=== PATIENT | male | born 1965 | race Caucasian/White ===

== ENCOUNTER 2021-08-06 07:54 | Day surgery (SDC) | payer OTHER, SELFPAY ==
[2021-07-31 15:24] VITALS: BMI 27.2
--- NOTE | 2021-08-06 08:06 | HO.ANESPROP2 ---
[facility] Past Medical History Medical History (Updated 07/31/21 @ 15:27 by Tammy Woodrfuf RN) CAD (coronary artery disease) COVID-19 vaccine series completed Elevated cholesterol HTN (hypertension) Myocardial infarction Family History Family history of problems with anesthesia: No Surgical History Surgical History (Updated 07/31/21 @ 15:24 by Tammy Woodruff RN) H/O colonoscopy Hx of heart artery stent Hx of sinus surgery History of Problems with Anesthesia: No Social History Social History Are you a primary hearing care professional to a significant other at home: No Do you presently have visiting nurse or other home services: No Patient Tobacco Use Status: Never used Tobacco Use of substances other than those prescribed or required for medical reasons: No Have you been hit, kicked, punched, or otherwise hurt by someone within the past year? If so, by whom?: No Are you DNR?: No Advance Directives Information Provided: Yes Advance Directives on File: No Recently lost weight without trying: No Eating poorly because of decreased appetite: No Nutrition Risks: No Nutritional Risk Poor oral hygiene: No (has crowns from old hockey injury) Meds Allergies Allergy/AdvReac Type Severity Reaction Status Date / Time No Known Allergies Allergy Verified 07/31/21 15:04 Active Medications: Current Medications Lactated Ringer's (Lr) 1,000 mls @ 50 mls/hr IVCONT .Q20H [facility] Home Medications Medication Instructions Recorded Confirmed Last Taken Type aspirin 81 mg tablet,delayed 81 mg PO DAILY 07/31/21 07/31/21 07/30/21 History release atorvastatin 80 mg tablet 80 mg PO BEDTIME 07/31/21 07/31/21 Unknown History lisinopril 5 mg tablet 5 mg PO DAILY 07/31/21 07/31/21 Unknown History metoprolol succinate 50 mg 50 mg PO DAILY 07/31/21 07/31/21 Unknown History tablet,extended release 24 hr Exam Exam Date and Time: August 06, 2021 0806 Height,Weight and Vital Signs: Height 6 ft Weight 91.172 kg Airway Mallampati Class: II (Caps 3 top front) TM Dist: >3cm Neck ROM: Full Heart: rrr Lungs: cta Assessment and Plan Assessment Anesthesia Assessment: Anesthesia Plan Discussed and Chart Reviewed Final Anesthetic Review Family History of Problems with Anesthesia: No History of Problems with Anesthesia: No NPO: Yes ASA Class: II Final Preanesthetic Review: No Changes in Pt Med Stat, Meds/Allgs Chart Reviewed and Consent Obtained/Reviewed Patient Risk: Intermediate Procedure Risk: Intermediate Anesthetic Plan Anesthetic Plan: MAC: Disposition: Standard PACU
[2021-08-06 08:11] VITALS: BP 121/66; PULSE 76; RESP 16; TEMP 36.2; O2SAT 97
[2021-08-06] MEDS: Lactated Ringers 1,000 ML 50 ML IVCONT (08:22)
--- NOTE | 2021-08-06 09:03 | MHC.SHP ---
Pre-Procedural Eval Section A Date of Service: 08/06/21 The patient is an INPATIENT: No Changes since office visit: No Cold of Flu in the past 2 weeks, No New Medical Problems, No Changes in Medication and No Patient answered all questions The History & Physical has been completed within 30 days and I have reviewed it.: Yes Section B Chief Complaint: screening Allergies: Allergies Allergy/AdvReac Type Severity Reaction Status Date / Time No Known Allergies Allergy Verified 07/31/21 15:04 Plan I have reviewed the history and physical and performed a pertinent physical examination on my patient. No changes have occurred unless specified.
[2021-08-06 09:22] VITALS: BP 84/74; PULSE 70; RESP 16; TEMP 36.2; O2SAT 96
--- NOTE | 2021-08-06 09:23 | PM.OP ---
Brief Operative Note Date of Service: 08/06/21 Pre-op diagnosis: screening Post-op diagnosis: same Procedure: colonoscopy Surgeon: Robinson Ortiz Anesthesia: MAC Was an College Football Coach used for this Procedure?: No Estimated blood loss (mL): 0 Pathology: none sent Condition: stable Disposition: PACU
[2021-08-06 09:37] VITALS: BP 90/55; PULSE 63; RESP 16; TEMP 36.2; O2SAT 99
--- NOTE | 2021-08-06 09:44 | OP_ITS ---
SURGEON: Robinson Ortiz MD INDICATIONS: Colon cancer screening. PREOPERATIVE DIAGNOSIS: POSTOPERATIVE DIAGNOSIS: PROCEDURE PERFORMED: Colonoscopy to the terminal ileum. ESTIMATED BLOOD LOSS: COMPLICATIONS: ANESTHESIA: Medications, monitored anesthesia care. ASSISTANTS: SPECIMENS: DESCRIPTION OF PROCEDURE: History and physical performed. The risks and benefits of the procedure were explained to the patient. Informed consent was obtained. The patient was placed in the left lateral decubitus position. A digital rectal exam was performed and was found to be normal. The Olympus pediatric video colonoscope was introduced into the rectum and advanced to the cecum without difficulty. The cecum was identified by transillumination, palpation, and identification of ileocecal valve. Examination was performed, and the scope was removed. He tolerated the procedure well, and was taken to recovery area in stable condition. FINDINGS: The terminal ileum was examined and appeared normal. The visualized colonic mucosa was within normal limits without evidence of masses or ulcers. No polyps were identified. The quality of prep was good. There was mild sigmoid diverticulosis. Retroflexed examination showed small internal hemorrhoids. IMPRESSION: Negative screening colonoscopy. RECOMMENDATIONS: 1. Follow up as needed. 2. Repeat colonoscopy is recommended in 10 years for average risk individuals. MD JACQUELIN Haywood/LEONA / [id number]
== END 2021-08-06 10:25 | disposition home or self-care (01) ==
PROVIDERS: PCP Internal Medicine; Visit Provider Internal Medicine Gastroenterology
PROC: 0DJD8ZZ Inspection of Lower Intestinal Tract, Via Natural or Artificial Opening Endoscopic (ICD-10-PCS; CPT 45378; principal; 2021-08-06 09:10)
DX: Z12.11 Encounter for screening for malignant neoplasm of colon (principal); K57.30 Diverticulosis of large intestine without perforation or abscess without bleeding; K64.8 Other hemorrhoids; I25.10 Atherosclerotic heart disease of native coronary artery without angina pectoris; Z98.61 Coronary angioplasty status; I11.9 Hypertensive heart disease without heart failure; I25.2 Old myocardial infarction; E78.5 Hyperlipidemia, unspecified; Z79.82 Long term (current) use of aspirin; Z79.899 Other long term (current) drug therapy
CPT/HCPCS: 45378